=== PATIENT | male | born 1965 | race Caucasian/White ===

== ENCOUNTER 2017-06-07 17:27 | Inpatient (IN) | payer OTHER ==
--- NOTE | 2017-06-07 18:27 | EDM.PDOCBH ---
ED HPI GENERAL MEDICAL PROBLEM - General Chief Complaint: Drug or Alcohol Abuse Stated Complaint: DETOX Time Seen by Provider: 06/07/17 17:44 Source of Information: Reports: Patient, Provider History Limitations: Reports: No Limitations - History of Present Illness INITIAL COMMENTS - FREE TEXT/NARRATIVE: The patient presents with possible withdrawal symptoms. The patient has a history of type II diabetes. He also had peripheral neuropathy. He had gastric bypass over a year ago and lost about 216 pounds. He was able to come off of his medications for diabetes. He still had peripheral neuropathy. He sees Damaris Huerta and she has been trying to get him off of hydrocodone and on neurontin and other medications such as amitriptyline. When he lost all the weight and got healthier, his left him after 31 years of marriage. He started taking some Kratom. It is an herbal that is over the counter and it has opiod and stimulant properties. He stopped taking it recently. His symptoms include nausea, lump in throat, diaphoresis, racing thoughts, insomnia , and muscle aches. He denies chest pain or shortness of breath. He went to see Damaris Huerta and she sent him here. He did not feel well enough to go home. Onset: Gradual Duration: Day(s): Location: Reports: Other Quality: Reports: Ache Severity: Mild Improves with: Reports: None Worsens with: Reports: None Associated Symptoms: Reports: Fever/Chills, Nausea/Vomiting. Denies: Chest Pain , Cough, Headaches, Shortness of Breath - Related Data Allergies Allergy/AdvReac Type Severity Reaction Status Date / Time No Known Allergies Allergy Verified 06/07/17 17:57 Home Meds: Home Meds Amitriptyline [Elavil] 25 mg PO DAILY 06/07/17 [History] DULoxetine [Cymbalta] 30 mg PO DAILY 06/07/17 [History] Gabapentin [Neurontin] 300 mg PO QID 06/07/17 [History] Hydrocodone/Acetaminophen [Hydrocodon-Acetaminophn 10-325] 10 - 325 mg PO Q6H PRN 06/07/17 [History] Kratum 0 tab PO DAILY 06/07/17 [History] Latanoprost [Xalatan 0.005% Ophth Soln] 1 drop EYEBOTH DAILY 06/07/17 [History] Past Medical History Neurological History: Reports: Neuropathy, Peripheral Psychiatric History: Reports: Anxiety, Depression Endocrine/Metabolic History: Reports: Diabetes, Type II - Past Surgical History GI Surgical History: Reports: Bariatric Procedure Social & Family History - Tobacco Use Smoking Status *Q: Never Smoker - Caffeine Use Caffeine Use: Reports: None - Recreational Drug Use Recreational Drug Use: Yes Drug Use in Last 12 Months: Yes Recreational Drug Type: Reports: Other (see below) Other Recreational Drug Type: Kratum ED ROS GENERAL - Review of Systems Review Of Systems: See Below Constitutional: Reports: Chills HEENT: Reports: No Symptoms Respiratory: Reports: No Symptoms Cardiovascular: Reports: No Symptoms Endocrine: Reports: No Symptoms GI/Abdominal: Reports: Abdominal Pain (Mild), Nausea. Denies: Diarrhea, Vomiting : Reports: No Symptoms Musculoskeletal: Reports: Muscle Pain ED EXAM, BEHAVIORAL HEALTH - Physical Exam Exam: See Below Exam Limited By: No Limitations General Appearance: Alert, No Apparent Distress Ears: Normal External Exam Nose: Normal Inspection Head: Atraumatic, Normocephalic Neck: Normal Inspection Respiratory/Chest: No Respiratory Distress, Lungs Clear, Normal Breath Sounds Cardiovascular: Regular Rate, Rhythm, No Edema, No Murmur GI/Abdominal: Soft, Non-Tender, No Organomegaly, No Mass Back Exam: Normal Inspection COURSE, BEHAVIORAL HEALTH COMP - Course Vital Signs: Last Vital Signs Temp 97.9 F 06/07/17 17:50 Pulse 75 06/07/17 17:50 Resp 10 L 06/07/17 17:50 BP 169/84 H 06/07/17 17:50 Pulse Ox 98 06/07/17 17:50 Orders, Labs, Meds: Active Orders 24 hr Category Date Time Status Peripheral IV Care [RC] . DIRECTED Care 06/07/17 18:34 Active Gabapentin [Neurontin] Med 06/07/17 18:56 Once 300 mg PO ONETIME ONE Sodium Chloride 0.9% [Normal Saline] 1,000 ml Med 06/07/17 18:45 Active IV ASDIRECTED Sodium Chloride 0.9% [Saline Flush] Med 06/07/17 18:34 Active 10 ml FLUSH ASDIRECTED PRN Peripheral IV Insertion Adult [OM.PC] Routine Oth 06/07/17 18:34 Ordered Medication Orders Sodium Chloride (Normal Saline) 1,000 mls @ 150 mls/hr IV ASDIRECTED ANGELA Last Admin: 06/07/17 18:52 Dose: 150 mls/hr Sodium Chloride (Saline Flush) 10 ml FLUSH ASDIRECTED PRN PRN Reason: Keep Vein Open Last Admin: 06/07/17 18:45 Dose: 10 ml Laboratory Tests 06/07/17 06/07/17 Range/Units 15:56 18:10 Urine Opiates Screen Presumptive positive H (NEGATIVE) Ur Buprenorphine Scrn Negative (NEGATIVE) Ur Oxycodone Screen Negative (NEGATIVE) Urine Methadone Screen Negative (NEGATIVE) Ur Propoxyphene Screen Negative (NEGATIVE) Ur Barbiturates Screen Negative (NEGATIVE) Ur Tricyclics Screen Presumptive positive H (NEGATIVE) Ur Phencyclidine Scrn Negative (NEGATIVE) Ur Amphetamine Screen Negative (NEGATIVE) U Methamphetamines Scrn Negative (NEGATIVE) U Benzodiazepines Scrn Negative (NEGATIVE) U Cocaine Metab Screen Negative (NEGATIVE) U Marijuana (THC) Screen Negative (NEGATIVE) Ethyl Alcohol 0.00 (0.00) gm% Medications Generic Name Dose Route Start Last Admin Trade Name Freq PRN Reason Stop Dose Admin Sodium Chloride 1,000 mls @ 150 mls/hr 06/07/17 18:45 06/07/17 18:52 Normal Saline IV 150 mls/hr ASDIRECTED ANGELA Administration Sodium Chloride 10 ml 06/07/17 18:34 06/07/17 18:45 Saline Flush FLUSH 10 ml ASDIRECTED PRN Administration Keep Vein Open Discontinued Medications Generic Name Dose Route Start Last Admin Trade Name Freq PRN Reason Stop Dose Admin Lorazepam 1 mg 06/07/17 18:34 06/07/17 18:51 Ativan IVPUSH 06/07/17 18:35 1 mg ONETIME ONE Administration Ondansetron HCl 4 mg 06/07/17 18:35 06/07/17 18:49 Zofran IVPUSH 06/07/17 18:36 4 mg ONETIME ONE Administration Re-Assessment/Re-Exam: I ordered an IV NS at 150mL/hr, ativan 1mg IV, zofran 4mg IV, ETOH and urine drug screen. His CBC and CMP looked good. His UA shows no UTI. His EOTH was negative. I am waiting for her UDS. I called poison control and they have not seen this alot but with withdrawals the big concern is seizures. It is rare but serious. They recommended some benzos. His UDS shows amitryptoline and opiods. That is consistent with his medications. His ETOH is negative. I feel he needs to be admitted. I called Dr Yeung and she agreed to the admission. Departure - Departure Time of Disposition: 19:00 Disposition: Admitted As Inpatient 64 Condition: Serious Clinical Impression: Withdrawal from opioids - Discharge Information Referrals: Damaris Huerta, [employer] [Primary Care Provider] - - My Orders Last 24 Hours: My Active Orders 06/07/17 18:34 Peripheral IV Care [RC] . DIRECTED Sodium Chloride 0.9% [Saline Flush] 10 ml FLUSH ASDIRECTED PRN Peripheral IV Insertion Adult [OM.PC] Routine 06/07/17 18:45 Sodium Chloride 0.9% [Normal Saline] 1,000 ml IV ASDIRECTED 06/07/17 18:56 Gabapentin [Neurontin] 300 mg PO ONETIME ONE - Assessment/Plan Last 24 Hours: My Active Orders 06/07/17 18:34 Peripheral IV Care [RC] . DIRECTED Sodium Chloride 0.9% [Saline Flush] 10 ml FLUSH ASDIRECTED PRN Peripheral IV Insertion Adult [OM.PC] Routine 06/07/17 18:45 Sodium Chloride 0.9% [Normal Saline] 1,000 ml IV ASDIRECTED 06/07/17 18:56 Gabapentin [Neurontin] 300 mg PO ONETIME ONE
[2017-06-07] MEDS ORDERED: Sodium Chloride 0.9% 10 ML Syringe FLUSH PRN (18:34)
[2017-06-07] MEDS ORDERED: LORazepam 2 MG/ML MDV IVPUSH ONE (18:34)
[2017-06-07] MEDS ORDERED: Ondansetron 4 MG/2 ML SDV IVPUSH ONE (18:35)
[2017-06-07] MEDS ORDERED: Sodium Chloride 0.9% 1,000 ML IV SCH (18:45)
[2017-06-07] MEDS ORDERED: Gabapentin 300 MG Cap PO ONE (18:56)
[2017-06-07] MEDS ORDERED: HYDROmorphone 0.5 MG/0.5 ML Syringe IVPUSH PRN (20:14)
[2017-06-07] MEDS ORDERED: Ibuprofen 600 MG Tab PO PRN ×2 (20:15→20:21)
[2017-06-07] MEDS ORDERED: traMADol 50 MG Tab PO PRN (20:19)
[2017-06-07] MEDS ORDERED: Ondansetron 4 MG/2 ML SDV IVPUSH PRN (20:21)
--- NOTE | 2017-06-07 20:22 | PCM.HP ---
H&P History of Present Illness - General Date of Service: 06/07/17 Source of Information: Patient, Provider History Limitations: Reports: No Limitations - History of Present Illness Initial Comments - Free Text/Narative: 51 year old male history gastric by pass surgery, diabetes neuropathy dependent on narcotics as well as Kratum presents for treatment of Kartum addiction. He reports needing Neurontin as well as [place] for his neuropathy. He has started taking Kratum for relief of pain. Initially he was introduced by his son, and has begun to order his own supply. 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 The patient admits to depression, this has become more severe since his divorce from his of 31 years. He will be admitted to the ICU using the [facility] protocol and monitored for seizures during his hospitalization. Onset of Symptoms: Reports: Unknown/Unsure Duration of Symptoms: Reports: Week(s):, Getting Worse Location: Reports: Generalized Severity: Moderate Improves with: Reports: Medication Worsens with: Reports: Other (Kratum) Associated Symptoms: Reports: Other bilateral foot/toes Pain Score (Numeric/FACES): 5 - Related Data Allergies/Adverse Reactions: Allergies Allergy/AdvReac Type Severity Reaction Status Date / Time No Known Allergies Allergy Verified 06/07/17 22:24 Home Medications: Home Meds Amitriptyline [Elavil] 25 mg PO DAILY 06/07/17 [History] DULoxetine [Cymbalta] 30 mg PO DAILY 06/07/17 [History] Gabapentin [Neurontin] 300 mg PO QID 06/07/17 [History] Hydrocodone/Acetaminophen [Hydrocodon-Acetaminophn 10-325] 10 - 325 mg PO Q6H PRN 06/07/17 [History] Kratum 1 tab PO DAILY 06/07/17 [History] Latanoprost [Xalatan 0.005% Ophth Soln] 1 drop EYEBOTH BEDTIME 06/07/17 [History ] Past Medical History Neurological History: Reports: Neuropathy, Peripheral Psychiatric History: Reports: Anxiety, Depression Endocrine/Metabolic History: Reports: Diabetes, Type II - Past Surgical History GI Surgical History: Reports: Bariatric Procedure Social & Family History - Tobacco Use Smoking Status *Q: Never Smoker - Caffeine Use Caffeine Use: Reports: None - Recreational Drug Use Recreational Drug Use: Yes Drug Use in Last 12 Months: Yes Recreational Drug Type: Reports: Other (see below) Other Recreational Drug Type: Kratum H&P Review of Systems - Review of Systems: Review Of Systems: See Below General: Reports: Malaise, Decreased Appetite HEENT: Reports: No Symptoms Pulmonary: Reports: No Symptoms Cardiovascular: Reports: No Symptoms Gastrointestinal: Reports: No Symptoms Genitourinary: Reports: No Symptoms Musculoskeletal: Reports: No Symptoms Skin: Reports: No Symptoms Psychiatric: Reports: Depression, Anxiety Neurological: Reports: No Symptoms Hematologic/Lymphatic: Reports: No Symptoms Immunologic: Reports: No Symptoms Exam - Exam Exam: See Below - Vital Signs Vital Signs: Last Vital Signs Temp 36.6 C 06/07/17 17:50 Pulse 75 06/07/17 17:50 Resp 10 L 06/07/17 17:50 BP 169/84 H 06/07/17 17:50 Pulse Ox 98 06/07/17 17:50 Weight: 97.976 kg - Exam Quality Assessment: DVT Prophylaxis General: Alert, Oriented, Cooperative HEENT: Conjunctiva Clear, Pupils Equal, Pupils Reactive, PERRLA Neck: Supple Lungs: Normal Respiratory Effort Cardiovascular: Regular Rate, Regular Rhythm GI/Abdominal Exam: Normal Bowel Sounds, Soft, Non-Tender, No Organomegaly, No Distention (Male) Exam: Deferred Rectal (Males) Exam: Deferred Back Exam: Normal Inspection Extremities: Normal Inspection, Normal Range of Motion Skin: Warm Neurological: Cranial Nerves Intact Neuro Extensive - Mental Status: Alert, Oriented x3, Normal Mood/Affect Neuro Extensive - Motor, Sensory, Reflexes: CN II-XII Intact, Normal Gait Psychiatric: Alert, Depressed - Patient Data Result Diagrams: 06/09/17 05:05 06/09/17 05:05 *Q Meaningful Use (ADM) - VTE *Q VTE Criteria *Q: - Stroke *Q Stroke Criteria *Q: - AMI *Q AMI Criteria *Q: - Problem List (1) Diabetes SNOMED Code(s): 98439331 ICD Code: E11.9 - TYPE 2 DIABETES MELLITUS WITHOUT COMPLICATIONS Status: Acute Current Visit: Yes (2) Diabetic neuropathy SNOMED Code(s): 113379389 ICD Code: E11.40 - TYPE 2 DIABETES MELLITUS WITH DIABETIC NEUROPATHY, UNSP Status: Acute Current Visit: Yes (3) Anxiety SNOMED Code(s): 98018282 ICD Code: F41.9 - ANXIETY DISORDER, UNSPECIFIED Status: Acute Current Visit: Yes (4) Depression SNOMED Code(s): 02482952 ICD Code: F32.9 - MAJOR DEPRESSIVE DISORDER, SINGLE EPISODE, UNSPECIFIED Status: Acute Current Visit: Yes (5) Withdrawal from opioids SNOMED Code(s): 45612551 ICD Code: F11.23 - OPIOID DEPENDENCE WITH WITHDRAWAL Status: Acute Current Visit: Yes Problem List Initiated/Reviewed/Updated: Yes Orders Last 24hrs: Active Orders 24 hr Category Date Time Status Antiembolic Devices [RC] PER UNIT ROUTINE Care 06/07/17 20:20 Ordered CIWAA Assessment [RC] Q4H Care 06/07/17 20:12 Ordered Notify Provider Consults [RC] ASDIRECTED Care 06/07/17 20:09 Ordered Consult for Substance Abuse [CONS] Routine Cons 06/08/17 09:00 Ordered Consult to Physician [CONS] Routine Cons 06/08/17 09:00 Ordered Consult to Cissp [CONS] Routine Cons 06/07/17 20:09 Ordered Heart Healthy Diet [DIET] Diet 06/07/17 Dinner Ordered BASIC METABOLIC PANEL,BMP [CHEM] DAILY Lab 06/08/17 05:00 Ordered BASIC METABOLIC PANEL,BMP [CHEM] DAILY Lab 06/09/17 05:00 Ordered BASIC METABOLIC PANEL,BMP [CHEM] DAILY Lab 06/10/17 05:00 Ordered BASIC METABOLIC PANEL,BMP [CHEM] DAILY Lab 06/11/17 05:00 Ordered CBC WITH AUTO DIFF [HEME] DAILY Lab 06/08/17 05:00 Ordered CBC WITH AUTO DIFF [HEME] DAILY Lab 06/09/17 05:00 Ordered CBC WITH AUTO DIFF [HEME] DAILY Lab 06/10/17 05:00 Ordered CBC WITH AUTO DIFF [HEME] DAILY Lab 06/11/17 05:00 Ordered CRP [C-REACTIVE PROTEIN] [CHEM] DAILY Lab 06/08/17 05:00 Ordered CRP [C-REACTIVE PROTEIN] [CHEM] DAILY Lab 06/09/17 05:00 Ordered CRP [C-REACTIVE PROTEIN] [CHEM] DAILY Lab 06/10/17 05:00 Ordered CRP [C-REACTIVE PROTEIN] [CHEM] DAILY Lab 06/11/17 05:00 Ordered GLYCOSYLATED HEMOGLOBIN,HGBA1C [CHEM] Routine Lab 06/08/17 05:00 Ordered MAGNESIUM [CHEM] DAILY Lab 06/08/17 05:00 Ordered MAGNESIUM [CHEM] DAILY Lab 06/09/17 05:00 Ordered MAGNESIUM [CHEM] DAILY Lab 06/10/17 05:00 Ordered MAGNESIUM [CHEM] DAILY Lab 06/11/17 05:00 Ordered Amitriptyline [Elavil] Med 06/07/17 21:00 Hold 25 mg PO DAILY DULoxetine [Cymbalta] Med 06/08/17 09:00 Ordered 30 mg PO DAILY Enoxaparin [Lovenox] Med 06/08/17 09:00 Ordered 40 mg SUBCUT DAILY Gabapentin [Neurontin] Med 06/07/17 21:00 Ordered 300 mg PO QID HYDROmorphone [Dilaudid] Med 06/07/17 20:14 Ordered 0.5 mg IVPUSH Q6H PRN Ibuprofen [Motrin] Med 06/07/17 20:21 Ordered 600 mg PO Q6H PRN Latanoprost [Xalatan 0.005% Ophth Soln] Med 06/07/17 21:00 Ordered 1 drop EYEBOTH DAILY Ondansetron [Zofran] Med 06/07/17 20:21 Ordered 4 mg IVPUSH Q8H PRN QUEtiapine [SEROquel] Med 06/07/17 21:00 Ordered 25 mg PO BEDTIME chlordiazePOXIDE [Librium] Med 06/07/17 21:00 Ordered 10 mg PO TID traMADol [Ultram] Med 06/07/17 20:19 Ordered 50 mg PO Q8H PRN Seizure Precautions [OM.PC] Routine Oth 06/07/17 20:16 Ordered SHOAIB Hose [Antiembolic Hose] [OM.PC] Routine Oth 06/07/17 20:20 Ordered Medication Orders Amitriptyline HCl (Elavil) 25 mg PO DAILY ANGELA Chlordiazepoxide HCl (Librium) 10 mg PO TID ANGELA Duloxetine HCl (Cymbalta) 30 mg PO DAILY ANGELA Enoxaparin Sodium (Lovenox) 40 mg SUBCUT DAILY ANGELA Gabapentin (Neurontin) 300 mg PO QID ANGELA Hydromorphone HCl (Dilaudid) 0.5 mg IVPUSH Q6H PRN PRN Reason: Pain Sodium Chloride (Normal Saline) 1,000 mls @ 150 mls/hr IV ASDIRECTED ANGELA Last Admin: 06/07/17 18:52 Dose: 150 mls/hr Ibuprofen (Motrin) 600 mg PO Q6H PRN PRN Reason: Pain Latanoprost (Xalatan 0.005% Ophth Soln) 0 ml EYEBOTH DAILY [facility] Quetiapine Fumarate (Seroquel) 25 mg PO BEDTIME [facility] Sodium Chloride (Saline Flush) 10 ml FLUSH ASDIRECTED PRN PRN Reason: Keep Vein Open Last Admin: 06/07/17 18:45 Dose: 10 ml Tramadol HCl (Ultram) 50 mg PO Q8H PRN PRN Reason: Pain Assessment/Plan Comment:: Impression: Kratum/Opiod addiction Anxiety Depression History of morbid obesity S/P Gastric Bypass Diabetic neuropathy Plan: CIWA Scheduled Benzodiazepines [place] of Narcotics Seizure precaution Psych consult Substance abuse consult Home meds Daily labs SW consult DVT/GI prophylaxis
[2017-06-07] MEDS ORDERED: Sodium Chloride 0.45% 1,000 ML IV SCH (20:30)
[2017-06-07] MEDS: chlordiazePOXIDE 10 MG Cap PO SCH (20:58)
[2017-06-07] MEDS ORDERED: QUEtiapine 25 MG Tab PO SCH (21:00)
[2017-06-07] MEDS: Amitriptyline 25 MG Tab PO SCH (21:00)
[2017-06-07] MEDS: Latanoprost 0.005% Ophth Soln 2.5 ML Bottle EYEBOTH SCH (21:08)
[2017-06-07] MEDS: Gabapentin 300 MG Cap PO SCH (21:19)
[2017-06-08] MEDS: DULoxetine 30 MG Cap PO SCH (08:35)
[2017-06-08] MEDS: Latanoprost 0.005% Ophth Soln 2.5 ML Bottle EYEBOTH SCH ×3 (08:35→21:57)
[2017-06-08] MEDS: Gabapentin 300 MG Cap PO SCH ×4 (08:35→20:36)
[2017-06-08] MEDS: chlordiazePOXIDE 10 MG Cap PO SCH (08:35)
[2017-06-08] MEDS ORDERED: Enoxaparin 30 MG/0.3 ML Syringe SUBCUT SCH (09:00)
[2017-06-08] MEDS: Acetaminophen/HYDROcodone 325-10 MG Tab PO SCH ×2 (11:56→20:37)
[2017-06-08] MEDS ORDERED: LORazepam 2 MG/ML MDV IVPUSH PRN (14:22)
[2017-06-08] MEDS ORDERED: chlordiazePOXIDE 10 MG Cap PO SCH (14:23)
[2017-06-08] MEDS ORDERED: Haloperidol Lactate 5 MG/ML SDV IVPUSH PRN (14:23)
[2017-06-08] MEDS: chlordiazePOXIDE 25 MG Cap PO SCH ×2 (15:00→20:36)
[2017-06-08] MEDS: QUEtiapine 25 MG Tab PO SCH (20:36)
--- NOTE | 2017-06-08 20:39 | PCM.PN ---
- General Info Date of Service: 06/08/17 Functional Status: Reports: Tolerating Diet, Ambulating, Urinating - Review of Systems General: Reports: No Symptoms HEENT: Reports: No Symptoms Pulmonary: Reports: No Symptoms Cardiovascular: Reports: No Symptoms Gastrointestinal: Reports: No Symptoms Genitourinary: Reports: Pain (feet) Musculoskeletal: Reports: No Symptoms Skin: Reports: No Symptoms Neurological: Reports: No Symptoms Psychiatric: Reports: Depression - Patient Data Vitals - Most Recent: Last Vital Signs Temp 37.0 C 06/08/17 20:00 Pulse 75 06/07/17 17:50 Resp 16 06/08/17 20:00 BP 139/80 06/08/17 20:00 Pulse Ox 98 06/08/17 20:00 Weight - Most Recent: 97.976 kg I&O - Last 24 Hours: Intake & Output 06/08/17 06/08/17 06/08/17 06:59 14:59 22:59 Intake Total 1120 300 800 Output Total 1150 1250 Balance -30 -950 800 Lab Results Last 24 Hours: Laboratory Results - last 24 hr 06/08/17 06/08/17 06/08/17 Range/Units 04:57 04:57 04:57 WBC 5.94 (4.23-9.07) K/mm3 RBC 4.02 L (4.63-6.08) M/mm3 Hgb 11.6 L (13.7-17.5) gm/L Hct 35.9 L (40.1-51.0) % MCV 89.3 (79.0-92.2) fl MCH 28.9 (25.7-32.2) pg MCHC 32.3 (32.2-35.5) g/dl RDW Std Deviation 41.2 (35.1-43.9) fL Plt Count 274 (163-337) K/mm3 MPV 10.5 (9.4-12.3) fl Neut % (Auto) 55.9 (34.0-67.9) % Lymph % (Auto) 32.2 (21.8-53.1) % [place] % (Auto) 9.1 (5.3-12.2) % Eos % (Auto) 1.9 (0.8-7.0) Baso % (Auto) 0.7 (0.1-1.2) % Neut # (Auto) 3.33 (1.78-5.38) K/mm3 Lymph # (Auto) 1.91 (1.32-3.57) K/mm3 [place] # (Auto) 0.54 (0.30-0.82) K/mm3 Eos # (Auto) 0.11 (0.04-0.54) K/mm3 Baso # (Auto) 0.04 (0.01-0.08) K/mm3 Sodium 142 (136-145) mEq/L Potassium 3.6 (3.5-5.1) mEq/L Chloride 105 (98-107) mEq/L Carbon Dioxide 31 (21-32) mEq/L Anion Gap 9.6 (5-15) BUN 7 (7-18) mg/dL Creatinine 1.0 (0.7-1.3) mg/dL Est Cr Clr Drug Dosing 107.66 mL/min Estimated GFR (MDRD) > 60 (>60) mL/min BUN/Creatinine Ratio 7.0 L (14-18) Glucose 93 (74-106) mg/dL Hemoglobin A1c 5.90 (4.50-6.20) % Calcium 8.6 (8.5-10.1) mg/dL Magnesium 1.8 (1.8-2.4) mg/dl C-Reactive Protein < 0.2 (<1.0) mg/dL Med Orders - Current: Current Medications Hydrocodone Bitart/Acetaminophen ([place] 325-10 Mg) 1 tab PO Q8H [facility] Last Admin: 06/08/17 11:56 Dose: 1 tab Amitriptyline HCl (Elavil) 25 mg PO DAILY [facility] Last Admin: 06/07/17 21:00 Dose: 25 mg Chlordiazepoxide HCl (Librium) 25 mg PO TID [facility] Last Admin: 06/08/17 15:00 Dose: 25 mg Duloxetine HCl (Cymbalta) 30 mg PO DAILY [facility] Last Admin: 06/08/17 08:35 Dose: 30 mg Enoxaparin Sodium (Lovenox) 40 mg SUBCUT DAILY [facility] Gabapentin (Neurontin) 300 mg PO QID [facility] Last Admin: 06/08/17 18:09 Dose: 300 mg Haloperidol Lactate (Haldol) 0.5 mg IVPUSH Q8H PRN PRN Reason: restlessness Sodium Chloride (Sodium Chloride 0.45%) 1,000 mls @ 125 mls/hr IV ASDIRECTED [facility] Last Admin: 06/07/17 21:02 Dose: 125 mls/hr Ibuprofen (Motrin) 600 mg PO Q6H PRN PRN Reason: Pain Latanoprost (Xalatan 0.005% Ophth Soln) 0 ml EYEBOTH DAILY [facility] Last Admin: 06/08/17 11:56 Dose: Not Given Lorazepam (Ativan) 2 mg IVPUSH Q6H PRN PRN Reason: Anxiety Ondansetron HCl (Zofran) 4 mg IVPUSH Q8H PRN PRN Reason: Nausea/Vomiting Quetiapine Fumarate (Seroquel) 50 mg PO BEDTIME [facility] Sodium Chloride (Saline Flush) 10 ml FLUSH ASDIRECTED PRN PRN Reason: Keep Vein Open Last Admin: 06/07/17 18:45 Dose: 10 ml Tramadol HCl (Ultram) 50 mg PO Q8H PRN PRN Reason: Pain Discontinued Medications Chlordiazepoxide HCl (Librium) 10 mg PO TID [facility] Last Admin: 06/08/17 08:35 Dose: 10 mg Chlordiazepoxide HCl (Librium) 25 mg PO TID [facility] Enoxaparin Sodium (Lovenox) 40 mg SUBCUT DAILY [facility] Last Admin: 06/08/17 08:37 Dose: Not Given Gabapentin (Neurontin) 300 mg PO ONETIME ONE Stop: 06/07/17 18:57 Last Admin: 06/07/17 19:25 Dose: 300 mg Hydromorphone HCl (Dilaudid) 0.5 mg IVPUSH Q6H PRN PRN Reason: Pain Sodium Chloride (Normal Saline) 1,000 mls @ 150 mls/hr IV ASDIRECTED [facility] Last Admin: 06/07/17 18:52 Dose: 150 mls/hr Ibuprofen (Motrin) 600 mg PO Q8H PRN PRN Reason: Pain Lorazepam (Ativan) 1 mg IVPUSH ONETIME ONE Stop: 06/07/17 18:35 Last Admin: 06/07/17 18:51 Dose: 1 mg Ondansetron HCl (Zofran) 4 mg IVPUSH ONETIME ONE Stop: 06/07/17 18:36 Last Admin: 06/07/17 18:49 Dose: 4 mg Quetiapine Fumarate (Seroquel) 25 mg PO BEDTIME ANGEL[facility] Last Admin: 06/07/17 20:58 Dose: 25 mg - Exam Quality Assessment: DVT Prophylaxis General: Alert, Oriented, Cooperative, No Acute Distress HEENT: Pupils Equal, Pupils Reactive, EOMI Neck: Supple, Trachea Midline Lungs: Clear to Auscultation, Normal Respiratory Effort Cardiovascular: Regular Rate, Regular Rhythm GI/Abdominal Exam: Normal Bowel Sounds, Soft, Non-Tender, No Organomegaly, No Distention (Male) Exam: Deferred Back Exam: Normal Inspection Extremities: Normal Inspection Skin: Warm Neurological: No New Focal Deficit Psy/Mental Status: Alert, Depressed - Problem List Review Problem List Initiated/Reviewed/Updated: Yes - My Orders Last 24 Hours: My Active Orders 06/07/17 20:09 Notify Provider Consults [RC] ASDIRECTED Consult to Screed Person [CONS] Routine 06/07/17 20:12 CIWAA Assessment [RC] Q4HR 06/07/17 20:16 Seizure Precautions [OM.PC] Routine 06/07/17 20:19 traMADol [Ultram] 50 mg PO Q8H PRN 06/07/17 20:20 Antiembolic Devices [RC] 09,21 SHOAIB Hose [Antiembolic Hose] [OM.PC] Routine 06/07/17 20:21 Ibuprofen [Motrin] 600 mg PO Q6H PRN Ondansetron [Zofran] 4 mg IVPUSH Q8H PRN 06/07/17 20:30 Sodium Chloride 0.45% 1,000 ml IV ASDIRECTED 06/07/17 21:00 Amitriptyline [Elavil] 25 mg PO DAILY Gabapentin [Neurontin] 300 mg PO QID Latanoprost [Xalatan 0.005% Ophth Soln] 0 ml EYEBOTH DAILY 06/07/17 21:05 Admission Status [Patient Status] [ADT] Routine 06/07/17 22:37 Resuscitation Status Routine 06/07/17 22:38 Up ad Saira [RC] ASDIRECTED 06/08/17 09:00 Consult for Substance Abuse [CONS] Routine Consult to Physician [CONS] Routine DULoxetine [Cymbalta] 30 mg PO DAILY 06/08/17 11:44 Enoxaparin [Lovenox] 40 mg SUBCUT DAILY 06/08/17 11:45 Acetaminophen/HYDROcodone [[place] 325-10 MG] 1 tab PO Q8H 06/08/17 14:22 LORazepam [Ativan] 2 mg IVPUSH Q6H PRN 06/08/17 14:23 Haloperidol Lactate [Haldol] 0.5 mg IVPUSH Q8H PRN 06/08/17 14:52 chlordiazePOXIDE [Librium] 25 mg PO TID 06/09/17 05:00 BASIC METABOLIC PANEL,BMP [CHEM] DAILY CBC WITH AUTO DIFF [HEME] DAILY CRP [C-REACTIVE PROTEIN] [CHEM] DAILY MAGNESIUM [CHEM] DAILY 06/10/17 05:00 BASIC METABOLIC PANEL,BMP [CHEM] DAILY CBC WITH AUTO DIFF [HEME] DAILY CRP [C-REACTIVE PROTEIN] [CHEM] DAILY MAGNESIUM [CHEM] DAILY 06/11/17 05:00 BASIC METABOLIC PANEL,BMP [CHEM] DAILY CBC WITH AUTO DIFF [HEME] DAILY CRP [C-REACTIVE PROTEIN] [CHEM] DAILY MAGNESIUM [CHEM] DAILY - Plan Plan:: Impression: Kratum/Opiod addiction, day 1 Anxiety Depression History of morbid obesity S/P Gastric Bypass Diabetic neuropathy Plan: CIWA Scheduled Benzodiazepines [place] of Narcotics Seizure precaution Psych consult Substance abuse consult Home meds Daily labs SW consult DVT/GI prophylaxis
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
[2017-06-09] MEDS: Acetaminophen/HYDROcodone 325-10 MG Tab PO SCH ×3 (05:10→18:57)
[2017-06-09] MEDS: Gabapentin 300 MG Cap PO SCH ×4 (09:37→20:17)
[2017-06-09] MEDS: DULoxetine 30 MG Cap PO SCH (09:37)
[2017-06-09] MEDS: chlordiazePOXIDE 25 MG Cap PO SCH ×3 (09:37→20:17)
[2017-06-09] MEDS: Latanoprost 0.005% Ophth Soln 2.5 ML Bottle EYEBOTH SCH ×2 (09:38→09:40)
[2017-06-09] MEDS: Enoxaparin 40 MG/0.4 ML Syringe SUBCUT SCH ×2 (09:38→09:43)
--- NOTE | 2017-06-09 18:49 | PCM.PN ---
- General Info Date of Service: 06/09/17 Functional Status: Reports: Pain Controlled, Tolerating Diet, Ambulating, Urinating - Review of Systems General: Reports: No Symptoms HEENT: Reports: No Symptoms Pulmonary: Reports: No Symptoms Cardiovascular: Reports: No Symptoms Gastrointestinal: Reports: No Symptoms Musculoskeletal: Reports: No Symptoms, Leg Pain Skin: Reports: No Symptoms Neurological: Reports: No Symptoms Psychiatric: Reports: Confusion, Anxiety, Cravings - Patient Data Vitals - Most Recent: Last Vital Signs Temp 36.9 C 06/09/17 15:46 Pulse 56 L 06/09/17 15:46 Resp 19 06/09/17 15:46 BP 138/74 06/09/17 15:46 Pulse Ox 99 06/09/17 15:46 Weight - Most Recent: 97.976 kg I&O - Last 24 Hours: Intake & Output 06/09/17 06/09/17 06/09/17 06:59 14:59 22:59 Intake Total 400 180 600 Output Total 1000 650 Balance -600 180 -50 Lab Results Last 24 Hours: Laboratory Results - last 24 hr 06/09/17 06/09/17 Range/Units 05:05 05:05 WBC 6.65 (4.23-9.07) K/mm3 RBC 4.51 L (4.63-6.08) M/mm3 Hgb 13.0 L (13.7-17.5) gm/L Hct 40.1 (40.1-51.0) % MCV 88.9 (79.0-92.2) fl MCH 28.8 (25.7-32.2) pg MCHC 32.4 (32.2-35.5) g/dl RDW Std Deviation 41.6 (35.1-43.9) fL Plt Count 274 (163-337) K/mm3 MPV 10.5 (9.4-12.3) fl Neut % (Auto) 57.3 (34.0-67.9) % Lymph % (Auto) 32.6 (21.8-53.1) % Concho % (Auto) 7.5 (5.3-12.2) % Eos % (Auto) 1.8 (0.8-7.0) Baso % (Auto) 0.6 (0.1-1.2) % Neut # (Auto) 3.81 (1.78-5.38) K/mm3 Lymph # (Auto) 2.17 (1.32-3.57) K/mm3 Concho # (Auto) 0.50 (0.30-0.82) K/mm3 Eos # (Auto) 0.12 (0.04-0.54) K/mm3 Baso # (Auto) 0.04 (0.01-0.08) K/mm3 Sodium 143 (136-145) mEq/L Potassium 3.8 (3.5-5.1) mEq/L Chloride 104 (98-107) mEq/L Carbon Dioxide 32 (21-32) mEq/L Anion Gap 10.8 (5-15) BUN 9 (7-18) mg/dL Creatinine 1.0 (0.7-1.3) mg/dL Est Cr Clr Drug Dosing 107.66 mL/min Estimated GFR (MDRD) > 60 (>60) mL/min BUN/Creatinine Ratio 9.0 L (14-18) Glucose 125 H (74-106) mg/dL Calcium 9.0 (8.5-10.1) mg/dL Magnesium 1.9 (1.8-2.4) mg/dl C-Reactive Protein < 0.2 (<1.0) mg/dL Med Orders - Current: Current Medications Hydrocodone Bitart/Acetaminophen (Greenfield 325-10 Mg) 1 tab PO Q12H [facility] Amitriptyline HCl (Elavil) 25 mg PO DAILY [facility] Last Admin: 06/07/17 21:00 Dose: 25 mg Chlordiazepoxide HCl (Librium) 25 mg PO TID [facility] Last Admin: 06/09/17 15:49 Dose: 25 mg Duloxetine HCl (Cymbalta) 30 mg PO DAILY [facility] Last Admin: 06/09/17 09:37 Dose: 30 mg Enoxaparin Sodium (Lovenox) 40 mg SUBCUT DAILY [facility] Last Admin: 06/09/17 09:43 Dose: 40 mg Gabapentin (Neurontin) 300 mg PO QID [facility] Last Admin: 06/09/17 17:29 Dose: 300 mg Haloperidol Lactate (Haldol) 0.5 mg IVPUSH Q8H PRN PRN Reason: restlessness Ibuprofen (Motrin) 600 mg PO Q6H PRN PRN Reason: Pain Latanoprost (Xalatan 0.005% Ophth Soln) 0 ml EYEBOTH DAILY [facility] Last Admin: 06/09/17 09:40 Dose: Not Given Lorazepam (Ativan) 2 mg IVPUSH Q6H PRN PRN Reason: Anxiety Ondansetron HCl (Zofran) 4 mg IVPUSH Q8H PRN PRN Reason: Nausea/Vomiting Quetiapine Fumarate (Seroquel) 50 mg PO BEDTIME [facility] Last Admin: 06/08/17 20:36 Dose: 50 mg Sodium Chloride (Saline Flush) 10 ml FLUSH ASDIRECTED PRN PRN Reason: Keep Vein Open Last Admin: 06/07/17 18:45 Dose: 10 ml Tramadol HCl (Ultram) 50 mg PO Q8H PRN PRN Reason: Pain Discontinued Medications Hydrocodone Bitart/Acetaminophen (Greenfield 325-10 Mg) 1 tab PO Q8H [facility] Last Admin: 06/09/17 13:15 Dose: 1 tab Chlordiazepoxide HCl (Librium) 10 mg PO TID [facility] Last Admin: 06/08/17 08:35 Dose: 10 mg Chlordiazepoxide HCl (Librium) 25 mg PO TID [facility] Enoxaparin Sodium (Lovenox) 40 mg SUBCUT DAILY [facility] Last Admin: 06/08/17 08:37 Dose: Not Given Gabapentin (Neurontin) 300 mg PO ONETIME ONE Stop: 06/07/17 18:57 Last Admin: 06/07/17 19:25 Dose: 300 mg Hydromorphone HCl (Dilaudid) 0.5 mg IVPUSH Q6H PRN PRN Reason: Pain Sodium Chloride (Normal Saline) 1,000 mls @ 150 mls/hr IV ASDIRECTED [facility] Last Admin: 06/07/17 18:52 Dose: 150 mls/hr Sodium Chloride (Sodium Chloride 0.45%) 1,000 mls @ 125 mls/hr IV ASDIRECTED [facility] Last Admin: 06/07/17 21:02 Dose: 125 mls/hr Ibuprofen (Motrin) 600 mg PO Q8H PRN PRN Reason: Pain Lorazepam (Ativan) 1 mg IVPUSH ONETIME ONE Stop: 06/07/17 18:35 Last Admin: 06/07/17 18:51 Dose: 1 mg Ondansetron HCl (Zofran) 4 mg IVPUSH ONETIME ONE Stop: 06/07/17 18:36 Last Admin: 06/07/17 18:49 Dose: 4 mg Quetiapine Fumarate (Seroquel) 25 mg PO BEDTIME [facility] Last Admin: 06/07/17 20:58 Dose: 25 mg - Exam Quality Assessment: DVT Prophylaxis General: Alert, Oriented, Cooperative, No Acute Distress HEENT: Pupils Equal, Pupils Reactive, EOMI Neck: Supple, Trachea Midline, No JVD Lungs: Normal Respiratory Effort Cardiovascular: Regular Rate, Regular Rhythm GI/Abdominal Exam: Normal Bowel Sounds, Soft, Non-Tender, No Organomegaly, No Distention (Male) Exam: Deferred Back Exam: Normal Inspection - Problem List Review Problem List Initiated/Reviewed/Updated: Yes - My Orders Last 24 Hours: My Active Orders 06/09/17 09:29 Patient Status [ADT] Routine 06/09/17 18:15 Acetaminophen/HYDROcodone [Greenfield 325-10 MG] 1 tab PO Q12H 06/10/17 05:00 BASIC METABOLIC PANEL,BMP [CHEM] DAILY CBC WITH AUTO DIFF [HEME] DAILY CRP [C-REACTIVE PROTEIN] [CHEM] DAILY MAGNESIUM [CHEM] DAILY 06/11/17 05:00 BASIC METABOLIC PANEL,BMP [CHEM] DAILY CBC WITH AUTO DIFF [HEME] DAILY CRP [C-REACTIVE PROTEIN] [CHEM] DAILY MAGNESIUM [CHEM] DAILY - Plan Plan:: Impression: Kratum/Opiod addiction, day 1 Anxiety Depression History of morbid obesity S/P Gastric Bypass Diabetic neuropathy Plan: CIWA Scheduled Benzodiazepines [place] of Narcotics Seizure precaution Psych consult Substance abuse consult Home meds Daily labs SW consult DVT/GI prophylaxis
[2017-06-09] MEDS ORDERED: Latanoprost 0.005% Ophth Soln 2.5 ML Bottle EYEBOTH SCH (21:00)
[2017-06-09] MEDS: QUEtiapine 25 MG Tab PO SCH (22:01)
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
[2017-06-10] MEDS: Acetaminophen/HYDROcodone 325-10 MG Tab PO SCH (06:21)
[2017-06-10] MEDS: Enoxaparin 40 MG/0.4 ML Syringe SUBCUT SCH (09:28)
[2017-06-10] MEDS: DULoxetine 30 MG Cap PO SCH (09:28)
[2017-06-10] MEDS: chlordiazePOXIDE 25 MG Cap PO SCH (09:28)
[2017-06-10] MEDS: Amitriptyline 25 MG Tab PO SCH (09:28)
[2017-06-10] MEDS: Gabapentin 300 MG Cap PO SCH (09:29)
--- NOTE | 2017-06-10 09:57 | PCM.DCSUM1 ---
Discharge Summary - Hospital Course Free Text/Narrative:: 51 year old male history gastric by pass surgery, diabetes neuropathy dependent on narcotics as well as Kratum presents for treatment of Kartum addiction. He admits to taking this 8-10 times per day. He reports needing Neurontin as well as Simla for his neuropathy. He has started taking Kratum for relief of pain. Initially he was introduced by his son, and has begun to order his own supply. 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 The patient admits to depression, this has become more severe since his divorce from his of 31 years. He will be admitted to the ICU using the CIWA protocol and monitored for seizures during his hospitalization. Poison control was consulted in ED and initially followed patient through the first hospital day then signed off. Patient did go through withdrawl, controlled with ativan protocol based on CIWAA score, librium and seroquel. He was transferred out of ICU to [facility]. He continued to do well. Dr. Miller, Psychiatrist and [facility] were consulted. Patient was committed for outpatient rehabilitation. He is discharged and will see Dr. Stuart in [place] for Suboxone therapy. He is to follow up with his PCP RAFAELA Burgos within one week. - Discharge Data Discharge Date: 06/10/17 (admit date 06/07/17) Discharge Disposition: Home, Self-Care 01 Condition: Good - Discharge Diagnosis/Problem(s) (1) Withdrawal from opioids SNOMED Code(s): 14914790 ICD Code: F11.23 - OPIOID DEPENDENCE WITH WITHDRAWAL Status: Acute Priority: High (2) Anxiety SNOMED Code(s): 31985024 ICD Code: F41.9 - ANXIETY DISORDER, UNSPECIFIED Status: Chronic Priority : High (3) Depression SNOMED Code(s): 27764656 ICD Code: F32.9 - MAJOR DEPRESSIVE DISORDER, SINGLE EPISODE, UNSPECIFIED Status: Acute Priority: High Qualifiers: Depression Type: other depression Qualified Code(s): F32.89 - Other specified depressive episodes (4) Diabetes SNOMED Code(s): 18904537 ICD Code: E11.9 - TYPE 2 DIABETES MELLITUS WITHOUT COMPLICATIONS Status: Chronic Priority: Medium Qualifiers: Diabetes mellitus type: type 2 Diabetes mellitus complication status: with other specified complication Diabetes mellitus custodial insulin use: without terminal gauger use Qualified Code(s): E11.69 - Type 2 diabetes mellitus with other specified complication (5) Diabetic neuropathy SNOMED Code(s): 527183200 ICD Code: E11.40 - TYPE 2 DIABETES MELLITUS WITH DIABETIC NEUROPATHY, UNSP Status: Chronic Priority: Medium Qualifiers: Diabetes mellitus type: type 2 Diabetes mellitus complication detail: with other neurological complication Qualified Code(s): E11.49 - Type 2 diabetes mellitus with other diabetic neurological complication - Patient Summary/Data Operative Procedure(s) Performed: None Complications: None Consults: Consultations 06/07/17 20:09 Consult to Childcare Administrator [CONS] Routine 06/08/17 09:00 Consult for Substance Abuse [CONS] Routine Consult to Physician [CONS] Routine Labs Pending at D/C: Follow up as scheduled with Dr. Stuart for Suboxone therapy Follow up as scheduled with [facility]--Outpatient commitment has been done by [facility]ccoy [facility] Follow up with PCP, Damaris Huerta within one week of discharge No Kratom, avoid hydrocodone and other opioid medications Push fluids Planned Operative Procedure(s) after DC: None Hospital Course: As above - Patient Instructions Diet: Heart Healthy Diet, Drink 8-10+ Glasses/Day Activity: As Tolerated Showering/Bathing: May Shower Notify Provider of: Fever, Increased Pain, Nausea and/or Vomiting - Discharge Plan Home Medications: Home Meds Amitriptyline [Elavil] 25 mg PO DAILY 06/07/17 [History] DULoxetine [Cymbalta] 30 mg PO DAILY 06/07/17 [History] Gabapentin [Neurontin] 300 mg PO QID 06/07/17 [History] Latanoprost [Xalatan 0.005% Ophth Soln] 1 drop EYEBOTH BEDTIME 06/07/17 [History ] Patient Handouts: Type 2 Diabetes Mellitus, Adult, Diabetes and Foot Care, Peripheral Neuropathy, Opioid Withdrawal, Opioid Use Disorder Referrals: Damaris Huerta [employer]ER [Primary Care Provider] - 06/22/17 8:00 am (Please follow up with Damaris Huerta on at 0800.) - Discharge Summary/Plan Comment DC Time >30 min.: Yes (40 min) - General Info Date of Service: 06/10/17 Admission Dx/Problem (Free Text: Opioid withdrawl due to Kratom supplement Doing well today, RADHAA's zero, no n/v/d. No shakes or cravings at this time. Has visit scheduled with Dr. Stuart for suboxone therapy eval later today in [place]. Has been committed by [facility] for outpatient treatment program. Functional Status: Reports: Pain Controlled, Tolerating Diet, Ambulating, Urinating. Denies: New Symptoms - Review of Systems General: Reports: No Symptoms HEENT: Reports: No Symptoms Pulmonary: Reports: No Symptoms Cardiovascular: Reports: No Symptoms Gastrointestinal: Reports: No Symptoms Genitourinary: Reports: No Symptoms Musculoskeletal: Reports: No Symptoms Skin: Reports: No Symptoms Neurological: Reports: No Symptoms Psychiatric: Reports: No Symptoms - Patient Data Vitals - Most Recent: Last Vital Signs Temp 97.3 F 06/10/17 08:27 Pulse 66 06/10/17 08:27 Resp 16 06/10/17 08:27 BP 129/77 06/10/17 08:27 Pulse Ox 95 06/10/17 08:27 Weight - Most Recent: 205 lb 11.2 oz I&O - Last 24 hours: Intake & Output 06/09/17 06/10/17 06/10/17 22:59 06:59 14:59 Intake Total 600 1200 Output Total 650 4 Balance -50 1196 Lab Results - Last 24 hrs: Laboratory Results - last 24 hr 06/10/17 06/10/17 Range/Units 05:24 05:24 WBC 7.19 (4.23-9.07) K/mm3 RBC 4.35 L (4.63-6.08) M/mm3 Hgb 12.4 L (13.7-17.5) gm/L Hct 38.3 L (40.1-51.0) % MCV 88.0 (79.0-92.2) fl MCH 28.5 (25.7-32.2) pg MCHC 32.4 (32.2-35.5) g/dl RDW Std Deviation 40.1 (35.1-43.9) fL Plt Count 259 (163-337) K/mm3 MPV 10.4 (9.4-12.3) fl Neut % (Auto) 53.7 (34.0-67.9) % Lymph % (Auto) 36.2 (21.8-53.1) % Swisher % (Auto) 8.1 (5.3-12.2) % Eos % (Auto) 1.5 (0.8-7.0) Baso % (Auto) 0.4 (0.1-1.2) % Neut # (Auto) 3.86 (1.78-5.38) K/mm3 Lymph # (Auto) 2.60 (1.32-3.57) K/mm3 Swisher # (Auto) 0.58 (0.30-0.82) K/mm3 Eos # (Auto) 0.11 (0.04-0.54) K/mm3 Baso # (Auto) 0.03 (0.01-0.08) K/mm3 Sodium 142 (136-145) mEq/L Potassium 3.8 (3.5-5.1) mEq/L Chloride 104 (98-107) mEq/L Carbon Dioxide 31 (21-32) mEq/L Anion Gap 10.8 (5-15) BUN 9 (7-18) mg/dL Creatinine 1.0 (0.7-1.3) mg/dL Est Cr Clr Drug Dosing 107.66 mL/min Estimated GFR (MDRD) > 60 (>60) mL/min BUN/Creatinine Ratio 9.0 L (14-18) Glucose 108 H (74-106) mg/dL Calcium 8.8 (8.5-10.1) mg/dL Magnesium 1.9 (1.8-2.4) mg/dl C-Reactive Protein < 0.2 (<1.0) mg/dL Med Orders - Current: Current Medications Hydrocodone Bitart/Acetaminophen (Simla 325-10 Mg) 1 tab PO Q12H [facility] Last Admin: 06/10/17 06:21 Dose: 1 tab Amitriptyline HCl (Elavil) 25 mg PO DAILY [facility] Last Admin: 06/10/17 09:28 Dose: 25 mg Chlordiazepoxide HCl (Librium) 25 mg PO TID [facility] Last Admin: 06/10/17 09:28 Dose: 25 mg Duloxetine HCl (Cymbalta) 30 mg PO DAILY [facility] Last Admin: 06/10/17 09:28 Dose: 30 mg Enoxaparin Sodium (Lovenox) 40 mg SUBCUT DAILY [facility] Last Admin: 06/10/17 09:28 Dose: 40 mg Gabapentin (Neurontin) 300 mg PO QID [facility] Last Admin: 06/10/17 09:29 Dose: 300 mg Haloperidol Lactate (Haldol) 0.5 mg IVPUSH Q8H PRN PRN Reason: restlessness Ibuprofen (Motrin) 600 mg PO Q6H PRN PRN Reason: Pain Latanoprost (Xalatan 0.005% Ophth Soln) 0 ml EYEBOTH BEDTIME [facility] Last Admin: 06/09/17 20:17 Dose: 1 drop Lorazepam (Ativan) 2 mg IVPUSH Q6H PRN PRN Reason: Anxiety Ondansetron HCl (Zofran) 4 mg IVPUSH Q8H PRN PRN Reason: Nausea/Vomiting Quetiapine Fumarate (Seroquel) 50 mg PO BEDTIME [facility] Last Admin: 06/09/17 22:01 Dose: 50 mg Sodium Chloride (Saline Flush) 10 ml FLUSH ASDIRECTED PRN PRN Reason: Keep Vein Open Last Admin: 06/07/17 18:45 Dose: 10 ml Tramadol HCl (Ultram) 50 mg PO Q8H PRN PRN Reason: Pain Discontinued Medications Hydrocodone Bitart/Acetaminophen (Simla 325-10 Mg) 1 tab PO Q8H [facility] Last Admin: 06/09/17 13:15 Dose: 1 tab Chlordiazepoxide HCl (Librium) 10 mg PO TID [facility] Last Admin: 06/08/17 08:35 Dose: 10 mg Chlordiazepoxide HCl (Librium) 25 mg PO TID [facility] Enoxaparin Sodium (Lovenox) 40 mg SUBCUT DAILY [facility] Last Admin: 06/08/17 08:37 Dose: Not Given Gabapentin (Neurontin) 300 mg PO ONETIME ONE Stop: 06/07/17 18:57 Last Admin: 06/07/17 19:25 Dose: 300 mg Hydromorphone HCl (Dilaudid) 0.5 mg IVPUSH Q6H PRN PRN Reason: Pain Sodium Chloride (Normal Saline) 1,000 mls @ 150 mls/hr IV ASDIRECTED [facility] Last Admin: 06/07/17 18:52 Dose: 150 mls/hr Sodium Chloride (Sodium Chloride 0.45%) 1,000 mls @ 125 mls/hr IV ASDIRECTED [facility] Last Admin: 06/07/17 21:02 Dose: 125 mls/hr Ibuprofen (Motrin) 600 mg PO Q8H PRN PRN Reason: Pain Latanoprost (Xalatan 0.005% Ophth Soln) 0 ml EYEBOTH DAILY [facility] Last Admin: 06/09/17 09:40 Dose: Not Given Lorazepam (Ativan) 1 mg IVPUSH ONETIME ONE Stop: 06/07/17 18:35 Last Admin: 06/07/17 18:51 Dose: 1 mg Ondansetron HCl (Zofran) 4 mg IVPUSH ONETIME ONE Stop: 06/07/17 18:36 Last Admin: 06/07/17 18:49 Dose: 4 mg Quetiapine Fumarate (Seroquel) 25 mg PO BEDTIME [facility] Last Admin: 06/07/17 20:58 Dose: 25 mg - Exam Quality Assessment: Reports: DVT Prophylaxis General: Reports: Alert, Oriented, Cooperative, No Acute Distress HEENT: Reports: Pupils Equal, EOMI, Mucous Membr. Moist/[place] Neck: Reports: Supple Lungs: Reports: Clear to Auscultation, Normal Respiratory Effort Cardiovascular: Reports: Regular Rate, Regular Rhythm GI/Abdominal Exam: Normal Bowel Sounds, Soft, Non-Tender (Male) Exam: Deferred Rectal (Males) Exam: Deferred Back Exam: Reports: Normal Inspection Extremities: Normal Inspection, No Pedal Edema, Normal Capillary Refill Neurological: Reports: No New Focal Deficit Psy/Mental Status: Reports: Alert, Normal Affect, Normal Mood *Q Meaningful Use (DIS) - VTE *Q VTE Criteria *Q: - Stroke *Q Stroke Criteria *Q: - AMI *Q AMI Criteria *Q:
== END 2017-06-10 11:50 | disposition home or self-care (01) | DRG 897 ==
LOC: JD.ED 17:27 → JD.ICU 19:30 → JD.MS 06-09 09:29
PROVIDERS: ADMIT Internal Medicine Cardiovascular Disease; ATTEND Internal Medicine Cardiovascular Disease
PROC: HZ2ZZZZ Detoxification Services for Substance Abuse Treatment (ICD-10-PCS; principal; 2017-06-07)
DX: F11.23 Opioid dependence with withdrawal (principal); F19.20 Other psychoactive substance dependence, uncomplicated; F32.2 Major depressive disorder, single episode, severe without psychotic features; F41.9 Anxiety disorder, unspecified; T40.2X5A Adverse effect of other opioids, initial encounter; F43.10 Post-traumatic stress disorder, unspecified; F29 Unspecified psychosis not due to a substance or known physiological condition; E11.42 Type 2 diabetes mellitus with diabetic polyneuropathy; Z79.899 Other long term (current) drug therapy; Z98.84 Bariatric surgery status; R53.83 Other fatigue
CPT/HCPCS: 36415; 80048; 80053; 80306; 81001; 83036; 83735; 85025; 86140; 96361; 96374; 96375; 99223; 99231; 99239; 99284; 99285-25; A9270-GY; G0480; J1650; J2060; J2405; J7030; J7040; J7050

== ENCOUNTER 2021-05-28 06:56 | Day surgery (SDC) | payer OTHER ==
[2021-05-28] MEDS: Polymyxin B/Trimethoprim 10 ML Bottle EYERT SCH ×4 (07:14→08:30)
--- NOTE | 2021-05-28 07:17 | PCM.PREANE ---
Preanesthetic Assessment - Anesthesia/Transfusion/Family Hx Anesthesia History: Prior Anesthesia Without Reaction Family History of Anesthesia Reaction: No Transfusion History: No Prior Transfusion(s) - Review of Systems General: No Symptoms, Other (nervous this am) Pulmonary: No Symptoms Cardiovascular: Other (HTN) Gastrointestinal: Other (GERD on meds) Neurological: No Symptoms, Other (neuropathy pain in hands and feet) Other: Reports: Diabetes (diet only), Depression, Anxiety - Physical Assessment NPO Status Date: 05/28/21 NPO Status Time: 00:30 Height: 1.93 m Weight: 106.594 kg ASA Class: 2 Mental Status: Alert & Oriented x3 Airway Class: Mallampati = 2 Dentition: Reports: Missing Tooth/Teeth (pt states he has a lot of loose teeth and they have been falling out. ) Thyro-Mental Finger Breadths: 3 Mouth Opening Finger Breadths: 3 ROM/Head Extension: Full Lungs: Clear to Auscultation, Normal Respiratory Effort Cardiovascular: Regular Rate, Regular Rhythm - Allergies Allergies/Adverse Reactions: Allergies Allergy/AdvReac Type Severity Reaction Status Date / Time No Known Allergies Allergy Verified 05/27/21 12:27 - Blood Blood Available: No Product(s) Available: None - Anesthesia Plan Pre-Op Medication Ordered: None - Acknowledgements Anesthesia Type Planned: MAC Pt an Appropriate Candidate for the Planned Anesthesia: Yes Alternatives and Risks of Anesthesia Discussed w Pt/Guardian: Yes Pt/Guardian Understands and Agrees with Anesthesia Plan: Yes PreAnesthesia Questionnaire Musculoskeletal History: Reports: Other (See Below) Other Musculoskeletal History: peripheral neuropathy Neurological History: Reports: Neuropathy, Peripheral Psychiatric History: Reports: Anxiety, Depression Endocrine/Metabolic History: Reports: Diabetes, Type II Other Endocrine/Metabolic History: diet/exercise control - Infectious Disease History Infectious Disease History: Reports: None - Past Surgical History GI Surgical History: Reports: Bariatric Procedure - HOME MEDS Home Medications: Home Meds Acetaminophen [Tylenol Arthritis] 1,950 mg PO DAILY PRN 11/02/19 [History] Buprenorphine/Naloxone [Buprenorphine-Naloxone 8 MG-2 MG] 1 tab PO TID 11/02/19 [History] Cholecalciferol (Vitamin D3) [Vitamin D3] 5,000 unit PO DAILY 11/02/19 [History] Cyanocobalamin (Vitamin B-12) [Vitamin B-12] 1,000 mcg PO DAILY 11/02/19 [History] Multivitamin [Daily Multiple Vitamin] 1 tab PO DAILY 11/02/19 [History] FLUoxetine HCl [Prozac] 10 mg PO DAILY 05/27/21 [History] Ferrous Sulfate [Iron] 325 mg PO DAILY 05/27/21 [History] Fish Oil/[place]-3 Fatty Acids [Fish Oil 1,000 MG] 1 gm PO DAILY 05/27/21 [History] Folic Acid/Vit B Complex and C [Super B Complex-Vit C Caplet] 400 mcg PO DAILY 05/27/21 [History] Furosemide [Lasix] 40 mg PO DAILY 05/27/21 [History] Magnesium Oxide 250 mg PO DAILY 05/27/21 [History] Pantoprazole Sodium [Protonix] 40 mg PO DAILY 05/27/21 [History] hydrOXYzine HCL [hydrOXYzine] 25 mg PO BEDTIME 05/27/21 [History] - CURRENT (IN HOUSE) MEDS Current Meds: Current Medications Brimonidine Tartrate (Brimonidine 0.2% Ophth Soln 5 Ml Bottle) 0 ml EYERT ASDIRECTED ANGELA Stop: 05/28/21 18:00 Cefuroxime Sodium (Cefuroxime 10 Mg/Ml Syringe) 0 mg EYERT ASDIRECTED ANGELA Stop: 05/28/21 18:00 Lidocaine HCl (Lidocaine 1% Pf 2 Ml Sdv) 0 ml INJECT ASDIRECTED ANGELA Stop: 05/28/21 18:00 Phenylephrine HCl (Phenylephrine 2.5% Ophth Soln 2 Ml Bot) 0 ml EYERT ASDIRECTED ANGELA Stop: 05/28/21 18:00 Pilocarpine HCl (Pilocarpine 4% Ophth Soln 15 Ml Bot) 0 ml EYERT ASDIRECTED ANGELA Stop: 05/28/21 18:00 Polymyxin/Trimethoprim Sulfate (Polymyxin B/Trimethoprim 10 Ml Bottle) 0 ml EYERT ASDIRECTED ANGELA Stop: 05/28/21 18:00 Tetracaine HCl (Tetracaine Hcl/Pf 0.5% 4 Ml Bottle) 0 ml EYEBOTH ASDIRECTED ANGELA Stop: 05/28/21 18:00 Tropicamide (Tropicamide 1% Ophth Soln 15 Ml Bottle) 0 ml EYERT ASDIRECTED ANGELA Stop: 05/28/21 18:00
[2021-05-28] MEDS: Brimonidine 0.2% Ophth Soln 5 ML Bottle EYERT SCH ×4 (07:19→08:30)
[2021-05-28] MEDS: Phenylephrine 2.5% Ophth Soln 2 ML Bot EYERT SCH ×6 (07:23→08:05)
[2021-05-28] MEDS: Tropicamide 1% Ophth Soln 15 ML Bottle EYERT SCH ×4 (07:27→07:56)
[2021-05-28] MEDS: Lidocaine 1% PF 2 ML SDV INJECT SCH ×2 (07:51→08:19)
[2021-05-28] MEDS: Tetracaine HCl/PF 0.5% 4 ML Bottle EYEBOTH SCH ×3 (07:51→08:18)
[2021-05-28] MEDS: Pilocarpine 4% Ophth Soln 15 ML Bot EYERT SCH ×2 (07:52→08:30)
[2021-05-28] MEDS: Cefuroxime 10 MG/ML SYRINGE EYERT SCH ×2 (07:52→08:29)
--- NOTE | 2021-05-28 08:31 | PCM48HPAN ---
Post Anesthesia Note - EVALUATION WITHIN 48HRS OF ANESTHETIC Vital Signs in Normal Range: Yes Patient Participated in Evaluation: Yes Respiratory Function Stable: Yes Airway Patent: Yes Cardiovascular Function Stable: Yes Hydration Status Stable: Yes Pain Control Satisfactory: Yes Nausea and Vomiting Control Satisfactory: Yes Mental Status Recovered: Yes Vital Signs: Last Vital Signs Temp 36.6 C 05/28/21 07:08 Pulse 76 05/28/21 07:08 Resp 16 05/28/21 07:08 BP 165/85 H 05/28/21 07:08 Pulse Ox 94 L 05/28/21 07:08
== END 2021-05-28 08:45 | disposition home or self-care (01) ==
LOC: JD.SDS 06:56
PROVIDERS: ATTEND Ophthalmology
DX: E11.36 Type 2 diabetes mellitus with diabetic cataract (principal); H25.813 Combined forms of age-related cataract, bilateral; H40.053 Ocular hypertension, bilateral; H16.103 Unspecified superficial keratitis, bilateral; H16.223 Keratoconjunctivitis sicca, not specified as Sjogren's, bilateral; H21.81 Floppy iris syndrome; F41.9 Anxiety disorder, unspecified; F32.9 Major depressive disorder, single episode, unspecified; E78.00 Pure hypercholesterolemia, unspecified; I10 Essential (primary) hypertension; Z98.890 Other specified postprocedural states; Z79.899 Other long term (current) drug therapy
CPT/HCPCS: 66984; J0697; C1780

== ENCOUNTER 2021-06-09 07:40 | Day surgery (SDC) | payer OTHER ==
[2021-06-09] MEDS: Tetracaine HCl/PF 0.5% 4 ML Bottle EYEBOTH SCH ×3 (07:49→09:38)
[2021-06-09] MEDS: Phenylephrine 2.5% Ophth Soln 2 ML Bot EYELF SCH ×6 (07:49→09:31)
[2021-06-09] MEDS: Cefuroxime 10 MG/ML SYRINGE EYELF SCH ×2 (07:51→09:53)
[2021-06-09] MEDS: Lidocaine 1% PF 2 ML SDV INJECT SCH ×2 (07:51→09:39)
[2021-06-09] MEDS: Brimonidine 0.2% Ophth Soln 5 ML Bottle EYELF SCH ×4 (07:52→09:54)
[2021-06-09] MEDS: Pilocarpine 4% Ophth Soln 15 ML Bot EYELF SCH ×2 (07:54→09:54)
[2021-06-09] MEDS: Polymyxin B/Trimethoprim 10 ML Bottle EYELF SCH ×4 (07:55→09:54)
--- NOTE | 2021-06-09 08:04 | PCM.PREANE ---
Preanesthetic Assessment - Anesthesia/Transfusion/Family Hx Anesthesia History: Prior Anesthesia Without Reaction Family History of Anesthesia Reaction: No Transfusion History: No Prior Transfusion(s) - Review of Systems General: Other (hx gastic bypass) Cardiovascular: Other (HTN) Other: Reports: Diabetes (non insulin), Depression, Anxiety - Physical Assessment NPO Status Date: 06/09/21 NPO Status Time: 03:30 Vital Signs: Last Vital Signs Temp 36.3 C 06/09/21 07:45 Pulse 92 06/09/21 07:45 Resp 16 06/09/21 07:45 BP 151/95 H 06/09/21 07:45 Pulse Ox 97 06/09/21 07:45 Height: 1.93 m Weight: 106.594 kg ASA Class: 2 Mental Status: Alert & Oriented x3 Airway Class: Mallampati = 2 Dentition: Reports: Normal Dentition Thyro-Mental Finger Breadths: 3 Mouth Opening Finger Breadths: 3 ROM/Head Extension: Full Lungs: Clear to Auscultation, Normal Respiratory Effort Cardiovascular: Regular Rate, Regular Rhythm - Allergies Allergies/Adverse Reactions: Allergies Allergy/AdvReac Type Severity Reaction Status Date / Time No Known Allergies Allergy Verified 06/09/21 07:57 - Blood Blood Available: No Product(s) Available: None - Anesthesia Plan Pre-Op Medication Ordered: None - Acknowledgements Anesthesia Type Planned: MAC Pt an Appropriate Candidate for the Planned Anesthesia: Yes Alternatives and Risks of Anesthesia Discussed w Pt/Guardian: Yes Pt/Guardian Understands and Agrees with Anesthesia Plan: Yes PreAnesthesia Questionnaire Musculoskeletal History: Reports: Other (See Below) Other Musculoskeletal History: peripheral neuropathy Neurological History: Reports: Neuropathy, Peripheral Psychiatric History: Reports: Anxiety, Depression Endocrine/Metabolic History: Reports: Diabetes, Type II Other Endocrine/Metabolic History: diet/exercise control - Infectious Disease History Infectious Disease History: Reports: None - Past Surgical History GI Surgical History: Reports: Bariatric Procedure - HOME MEDS Home Medications: Home Meds Acetaminophen [Tylenol Arthritis] 1,950 mg PO DAILY PRN 11/02/19 [History] Buprenorphine/Naloxone [Buprenorphine-Naloxone 8 MG-2 MG] 1 tab PO TID 11/02/19 [History] Cholecalciferol (Vitamin D3) [Vitamin D3] 5,000 unit PO DAILY 11/02/19 [History] Cyanocobalamin (Vitamin B-12) [Vitamin B-12] 1,000 mcg PO DAILY 11/02/19 [History] Multivitamin [Daily Multiple Vitamin] 1 tab PO DAILY 11/02/19 [History] FLUoxetine HCl [Prozac] 10 mg PO DAILY 05/27/21 [History] Ferrous Sulfate [Iron] 325 mg PO DAILY 05/27/21 [History] Fish Oil/[place]-3 Fatty Acids [Fish Oil 1,000 MG] 1 gm PO DAILY 05/27/21 [History] Folic Acid/Vit B Complex and C [Super B Complex-Vit C Caplet] 400 mcg PO DAILY 05/27/21 [History] Furosemide [Lasix] 40 mg PO DAILY 05/27/21 [History] Magnesium Oxide 250 mg PO DAILY 05/27/21 [History] Pantoprazole Sodium [Protonix] 40 mg PO DAILY 05/27/21 [History] hydrOXYzine HCL [hydrOXYzine] 25 mg PO BEDTIME 05/27/21 [History] - CURRENT (IN HOUSE) MEDS Current Meds: Current Medications Brimonidine Tartrate (Brimonidine 0.2% Ophth Soln 5 Ml Bottle) 0 ml EYELF ASDIRECTED ANGELA Stop: 06/09/21 16:00 Last Admin: 06/09/21 07:52 Dose: 1 ml Documented by: Cefuroxime Sodium (Cefuroxime 10 Mg/Ml Syringe) 0 mg EYELF ASDIRECTED ANGELA Stop: 06/09/21 18:00 Last Admin: 06/09/21 07:51 Dose: 1 mg Documented by: Lidocaine HCl (Lidocaine 1% Pf 2 Ml Sdv) 0 ml INJECT ASDIRECTED ANGELA Stop: 06/09/21 18:00 Last Admin: 06/09/21 07:51 Dose: 1 ml Documented by: Phenylephrine HCl (Phenylephrine 2.5% Ophth Soln 2 Ml Bot) 0 ml EYELF ASDIRECTED ANGELA Stop: 06/09/21 16:00 Last Admin: 06/09/21 07:49 Dose: 1 ml Documented by: Pilocarpine HCl (Pilocarpine 4% Ophth Soln 15 Ml Bot) 0 ml EYELF ASDIRECTED ANGELA Stop: 06/09/21 16:00 Last Admin: 06/09/21 07:54 Dose: 1 ml Documented by: Polymyxin/Trimethoprim Sulfate (Polymyxin B/Trimethoprim 10 Ml Bottle) 0 ml EYELF ASDIRECTED ANGELA Stop: 06/09/21 16:00 Last Admin: 06/09/21 07:55 Dose: 1 ml Documented by: Tetracaine HCl (Tetracaine Hcl/Pf 0.5% 4 Ml Bottle) 0 ml EYEBOTH ASDIRECTED ANGELA Stop: 06/09/21 16:00 Last Admin: 06/09/21 07:49 Dose: 1 ml Documented by: Tropicamide (Tropicamide 1% Ophth Soln 15 Ml Bottle) 0 ml EYELF ASDIRECTED ANGELA Stop: 06/09/21 16:00
[2021-06-09] MEDS: Tropicamide 1% Ophth Soln 15 ML Bottle EYELF SCH ×4 (08:40→09:19)
--- NOTE | 2021-06-09 09:56 | PCM48HPAN ---
Post Anesthesia Note - EVALUATION WITHIN 48HRS OF ANESTHETIC Vital Signs in Normal Range: Yes Patient Participated in Evaluation: Yes Respiratory Function Stable: Yes Airway Patent: Yes Cardiovascular Function Stable: Yes Hydration Status Stable: Yes Pain Control Satisfactory: Yes Nausea and Vomiting Control Satisfactory: Yes Mental Status Recovered: Yes Vital Signs: Last Vital Signs Temp 36.3 C 06/09/21 07:45 Pulse 92 06/09/21 07:45 Resp 16 06/09/21 07:45 BP 151/95 H 06/09/21 07:45 Pulse Ox 97 06/09/21 07:45
== END 2021-06-09 10:03 | disposition home or self-care (01) ==
LOC: JD.SDS 07:40
PROVIDERS: ATTEND Ophthalmology
DX: E11.36 Type 2 diabetes mellitus with diabetic cataract (principal); H25.812 Combined forms of age-related cataract, left eye; H52.31 Anisometropia; H40.053 Ocular hypertension, bilateral; H21.81 Floppy iris syndrome; F41.9 Anxiety disorder, unspecified; F32.A Depression, unspecified; E78.00 Pure hypercholesterolemia, unspecified; I10 Essential (primary) hypertension; Z98.890 Other specified postprocedural states; Z79.899 Other long term (current) drug therapy; Z88.1 Allergy status to other antibiotic agents; Z96.1 Presence of intraocular lens
CPT/HCPCS: 66984; J0697; C1780

== ENCOUNTER 2021-06-10 21:50 | Emergency (ER) | payer OTHER ==
--- NOTE | 2021-06-10 22:40 | EDM.PDOC ---
ED HPI GENERAL MEDICAL PROBLEM - General Chief Complaint: Cardiovascular Problem Stated Complaint: HIGH BP/IRREGULAR HEART RATE/SWOLLEN LEG Time Seen by Provider: 06/10/21 22:15 Source of Information: Reports: Patient History Limitations: Reports: No Limitations - History of Present Illness INITIAL COMMENTS - FREE TEXT/NARRATIVE: Patient is a 55-year-old male here with a chief complaint of chest tightness. Patient states symptoms started yesterday when he was having cataract surgery. He noticed that his diastolic blood pressure was significantly elevated. As the blood pressure recycled several times before going into surgery, he did notice these numbers to be trending downward. Today, he states he checked his blood pressure numerous times in the evening and noticed as he checked the blood pressure at seem to continually go higher. This led patient experiencing chest tightness. He denies any shortness of breath. He does report a history of anxiety. He states his anxiety seems to be worse recently as he is taking care of parents that have significant health problems and are declining. Denies any exertional symptoms. No prior history of DVT or PE. In addition, patient states he has bilateral lower extremity swelling with right greater than left. He states they have been this way for several years. His doctor is worked it up and reports that is likely just a venous problem as opposed to CHF or a DVT. He otherwise denies fevers, cough, dizziness, palpitations. Chest Pain Score (Numeric/FACES): 3 - Related Data Allergies Allergy/AdvReac Type Severity Reaction Status Date / Time No Known Allergies Allergy Verified 06/10/21 22:03 Home Meds: Home Meds Acetaminophen [Tylenol Arthritis] 1,950 mg PO DAILY PRN 11/02/19 [History] Buprenorphine/Naloxone [Buprenorphine-Naloxone 8 MG-2 MG] 1 tab PO TID 11/02/19 [History] Cholecalciferol (Vitamin D3) [Vitamin D3] 5,000 unit PO DAILY 11/02/19 [History] Multivitamin [Daily Multiple Vitamin] 1 tab PO DAILY 11/02/19 [History] FLUoxetine HCl [Prozac] 40 mg PO DAILY 05/27/21 [History] Ferrous Sulfate [Iron] 325 mg PO DAILY 05/27/21 [History] Fish Oil/Arco-3 Fatty Acids [Fish Oil 1,000 MG] 1 gm PO DAILY 05/27/21 [History] Folic Acid/Vit B Complex and C [Super B Complex-Vit C Caplet] 400 mcg PO DAILY 05/27/21 [History] Furosemide [Lasix] 40 mg PO DAILY 05/27/21 [History] Magnesium Oxide 400 mg PO DAILY 05/27/21 [History] Pantoprazole Sodium [Protonix] 40 mg PO DAILY 05/27/21 [History] hydrOXYzine HCL [hydrOXYzine] 25 mg PO BEDTIME 05/27/21 [History] Past Medical History HEENT History: Reports: Cataract Cardiovascular History: Reports: Heart Failure, High Cholesterol, Hypertension Other Cardiovascular History: HTN and Hypercholesterolemia has resolved since Gastric Bypass Musculoskeletal History: Reports: Other (See Below) Other Musculoskeletal History: peripheral neuropathy Neurological History: Reports: Neuropathy, Peripheral Psychiatric History: Reports: Addiction, Anxiety, Depression, Other (See Below) Other Psychiatric History: Insomnia, 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, 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) Endocrine/Metabolic History: Reports: Diabetes, Type II Other Endocrine/Metabolic History: diet/exercise control - Infectious Disease History Infectious Disease History: Reports: None - Past Surgical History HEENT Surgical History: Reports: Cataract Surgery Other HEENT Surgeries/Procedures: Cataract Surgery 06/09/21 GI Surgical History: Reports: Bariatric Procedure Other GI Surgeries/Procedures: Gastric Bypass 2012 Endocrine Surgical History: Reports: None Musculoskeletal Surgical History: Reports: None Social & Family History - Tobacco Use Tobacco Use Status *Q: Never Tobacco User - Caffeine Use Caffeine Use: Reports: None - Recreational Drug Use Recreational Drug Use: Yes Other Recreational Drug Type: history of opiate abuse- 4 years using suboxone ED ROS GENERAL - Review of Systems Review Of Systems: See Below Free Text/Narrative/Comment: In addition to that documented in the HPI above, the additional ROS was obtained: Constitutional: Denies fevers or chills Eyes: Denies vision changes ENMT: Denies sore throat CV: Per HPI Resp: Denies SOB GI: Denies vomiting or diarrhea : Denies painful urination MSK: Denies recent trauma Skin: Denies new rashes Neuro: Denies new numbness or tingling or weakness Endocrine: Denies unexpected weight loss Heme: Denies bleeding disorders ED EXAM, GENERAL - Physical Exam Exam: See Below Free Text/Narrative:: I have reviewed the triage vital signs Const: Well nourished, well developed, appears stated age Eyes: Pupils Equal and reactive to light bilaterally, no conjunctival injection HENT: No signs of trauma or swelling, Neck supple without meningismus CV: Bilateral lower extremity swelling with right somewhat greater than left. Regular Rate Rhythm, Warm, well-perfused extremities RESP: Unlabored respiratory effort GI: soft, non-tender, non-distended, no masses MSK: No gross deformities appreciated Skin: Warm, dry. No rashes Neuro: Alert, insulation technician II-XII grossly intact. Sensation and motor function of extremities grossly intact. Psych: Appropriate mood and affect. #1 Interpretation EKG Date: 06/10/21 Time: 21:58 Rhythm: NSR Rate (Beats/Min): 88 [place]: Normal P-Wave: Present QRS: Normal ST-T: Normal QT: Normal Comparison: NA - No Prior EKG EKG Interpretation Comments: Abnormal R wave progression. Otherwise normal EKG. #2 Interpretation EKG Date: 06/11/21 Time: 00:36 Rhythm: NSR Rate (Beats/Min): 76 [place]: Normal P-Wave: Present QRS: Normal ST-T: Normal QT: Normal Comparison: No Change EKG Interpretation Comments: No change from previous EKG. Abnormal R wave progression. Otherwise normal EKG. Course - Vital Signs Last Recorded V/S: Last Vital Signs Temp 37.0 C 06/10/21 22:08 Pulse 92 06/10/21 22:08 Resp 16 06/10/21 22:08 BP 160/89 H 06/10/21 22:08 Pulse Ox 100 06/10/21 22:08 - Orders/Labs/Meds Orders: Active Orders 24 hr Category Date Time Status Chest 1V Frontal [CR] Stat Exams 06/10/21 22:30 Taken Labs: Laboratory Tests 06/10/21 06/10/21 06/11/21 Range/Units 22:45 22:45 00:45 WBC 7.75 (4.23-9.07) K/mm3 RBC 4.78 (4.63-6.08) M/mm3 Hgb 14.2 (13.7-17.5) gm/dl Hct 43.4 (40.1-51.0) % MCV 90.8 (79.0-92.2) fl MCH 29.7 (25.7-32.2) pg MCHC 32.7 (32.2-35.5) g/dl RDW Std Deviation 41.3 (35.1-43.9) fL Plt Count 248 (163-337) K/mm3 MPV 10.8 (9.4-12.3) fl Neut % (Auto) 52.2 (34.0-67.9) % Lymph % (Auto) 36.3 (21.8-53.1) % [place] % (Auto) 9.2 (5.3-12.2) % Eos % (Auto) 1.4 (0.8-7.0) Baso % (Auto) 0.6 (0.1-1.2) % Neut # (Auto) 4.05 (1.78-5.38) K/mm3 Lymph # (Auto) 2.81 (1.32-3.57) K/mm3 [place] # (Auto) 0.71 (0.30-0.82) K/mm3 Eos # (Auto) 0.11 (0.04-0.54) K/mm3 Baso # (Auto) 0.05 (0.01-0.08) K/mm3 Sodium 141 (136-145) mEq/L Potassium 3.5 (3.5-5.1) mEq/L Chloride 101 (98-107) mEq/L Carbon Dioxide 32 (21-32) mEq/L Anion Gap 11.5 (5-15) BUN 10 (7-18) mg/dL Creatinine 1.4 H (0.7-1.3) mg/dL Est Cr Clr Drug Dosing 71.47 mL/min Estimated GFR (MDRD) 52 (>60) mL/min BUN/Creatinine Ratio 7.1 L (14-18) Glucose 156 H (70-99) mg/dL Calcium 8.5 (8.5-10.1) mg/dL Total Bilirubin 1.1 H (0.2-1.0) mg/dL AST 32 (15-37) U/L ALT 29 (16-63) U/L Alkaline Phosphatase 88 (46-116) U/L Troponin I < 0.017 < 0.017 (0.00-0.056) ng/mL Total Protein 6.6 (6.4-8.2) g/dl Albumin 3.4 (3.4-5.0) g/dl Globulin 3.2 gm/dL Albumin/Globulin Ratio 1.1 (1-2) Departure - Departure Time of Disposition: :22 Disposition: Home, Self-Care 01 Clinical Impression: Chest pain Instructions: Nonspecific Chest Pain, Adult, [id number] Referrals: Damaris Huerta SALES ASSOCIATE [Primary Care Provider] - Forms: ED Department Discharge Additional Instructions: Please follow-up with your primary care physician in the next 1 week. Return for any other emergent concerns. Sepsis Event Note (ED) - Evaluation Sepsis Screening Result: No Definite Risk - Focused Exam Vital Signs: Vital Signs Temp Pulse Resp BP Pulse Ox 06/10/21 22:08 37.0 C 92 16 160/89 H 100 - My Orders Last 24 Hours: My Active Orders 06/10/21 22:30 Chest 1V Frontal [CR] Stat - Assessment/Plan Last 24 Hours: My Active Orders 06/10/21 22:30 Chest 1V Frontal [CR] Stat Assessment:: Patient is a 55-year-old male presenting to the emergency room with a complaint of chest tightness and anxiety. ER course was uncomplicated. EKG showed minimal changes. No evidence of ST elevation. Serial troponins were unremarkable. Differential diagnosis considered for this patient include acute coronary syndrome, pulmonary embolism, pneumothorax, pneumonia, aortic dissection. At this point of work-up, patient is a heart score of 3. With serial negative troponins, I think patient completely safe for discharge. Extremely low suspicion of pulmonary embolism or aortic dissection. Likely strong component of anxiety. Return precautions given as usual. Patient agrees with plan of care.
--- NOTE | 2021-06-11 06:53 | CR ---
Chest: Portable view of the chest was obtained. Comparison: Prior chest x-ray of 09/20/16. Heart size and mediastinum are within normal limits. Lungs are clear with no acute parenchymal change. Bony structures show nothing acute. Impression: 1. Nothing acute is seen on portable chest x-ray. Diagnostic code #1
== END 2021-06-11 01:36 | disposition home or self-care (01) ==
LOC: JD.ED 21:50
DX: R07.89 Other chest pain (principal); I11.0 Hypertensive heart disease with heart failure; I50.9 Heart failure, unspecified; E78.00 Pure hypercholesterolemia, unspecified; E11.9 Type 2 diabetes mellitus without complications; Z79.899 Other long term (current) drug therapy
CPT/HCPCS: 36415; 71045; 71045-26; 80053; 84484; 85025; 93005; 99285-25